=== PATIENT | female | born 1935 | race Asian ===

== ENCOUNTER 2018-11-29 15:45 | Observation (INO) | payer MEDICARE, OTHER ==
[~2018-11-29] VITALS: Ht 152.4 cm; Wt 67.2 kg
[2018-11-29 15:48] VITALS: Ht 152.4 cm; Wt 67.2 kg
[2018-11-29] MEDS ORDERED: ALTEPLASE (CATHFLO) 2 MG INJ CATHETER PRN (19:00)
[2018-11-29] MEDS ORDERED: ALTEPLASE (CATHFLO) 2 MG INJ CATHETER ONE (19:00)
[2018-11-29] MEDS ORDERED: ACETAMINOPHEN 325 MG TAB PO PRN (21:00)
[2018-11-29] MEDS ORDERED: ONDANSETRON 4 MG INJ IV PRN (21:00)
--- NOTE | 2018-11-29 21:00 | ERD ---
ER Documentation Chief Complaint Chief Complaint pt is bib daughter with c/o AV fistula to right arm not working HD MWF HPI This is an 83-year-old female with a past medical history of hypertension, hyperlipidemia, diabetes, heart failure, end-stage renal disease status post right upper extremity graft on dialysis Sunday/Sunday/Sunday, last completed dialysis [facility] on Sunday who is presenting with concerns of an occlusion to the right upper extremity graft. The patient was not able to complete dialysis today. She otherwise feels well. She was assessed by her bereavement coordinator, Dr. Mesa, who referred her to the emergency department for admission for declotting of her graft. The patient denies feeling sick recently. The patient denies fever or chills. The patient has had no headache or vision changes. The patient does not endorse neck or back pain. The patient denies lightheadedness or dizziness. The patient has had no chest pain or trouble breathing. The patient denies nausea or vomiting. The patient denies abdominal pain. The patient denies changes to bowel movements or urination. The patient has had no focal deficits. The patient has had no weakness or numbness or tingling to the face or extremities. ROS All systems reviewed and are negative except as per history of present illness. Medications Home Meds Reported Medications Furosemide* (Furosemide*) 20 Mg Tablet, 60 MG PO BID for 30 Days, #180 11/29/18 Linagliptin (TRADJENTA) 5 Mg Tablet, 5 MG PO DAILY 11/29/18 Nifedipine (Afeditab CR) 60 Mg Tablet.sa, 60 MG PO DAILY for 90 Days, #90 11/29/18 Carvedilol* (Coreg*) 12.5 Mg Tablet, 12.5 MG PO Q12H 11/29/18 Insulin Degludec (Tresiba Flextouch U-100) 100 Unit/1 Ml Insuln.pen, 26 UNIT SQ QAM 11/29/18 Insulin Aspart* (Novolog Insulin Pen*) 100 Unit/Ml Soln, 8 UNIT SC WITH DINNER, EA 11/29/18 Ferric Citrate (Auryxia) 210 Mg Tablet, 420 MG PO TID TAKE 2TABLETS BY MOUTH THREE TIMES A DAY 11/29/18 Simvastatin (Simvastatin) 20 Mg Tablet, 20 MG PO QAM for 90 Days, #90 11/29/18 Memantine* (Namenda* XR) 14 Mg Cap.spr.24, 14 MG PO DAILY 11/29/18 Lactulose* (Cephulac*) 20 Gm/30 Ml Soln, 30 ML PO DAILY for 30 Days 11/29/18 Rivaroxaban* (Xarelto*) 15 Mg Tablet, 15 MG PO DAILY for 30 Days, #30 11/29/18 Pregabalin* (Lyrica*) 75 Mg Capsule, 75 MG PO BID for 30 Days, #60 11/29/18 Esomeprazole Magnesium (Esomeprazole Magnesium) 40 Mg Capsule.dr, 40 MG PO DAILY for 60 Days, #30 11/29/18 Discontinued Reported Medications Carvedilol* (Carvedilol*) 12.5 Mg Tablet, 12.5 MG PO BID, #60 TAB 11/29/18 Allergies Allergies: Coded Allergies: No Known Allergy (Unverified , 11/29/18) PMhx/Soc History of Surgery: Yes (2007 PACEMAKER) Anesthesia Reaction: No Hx Neurological Disorder: No Hx Respiratory Disorders: No Hx Cardiac Disorders: Yes (HTN) Hx Psychiatric Problems: No Hx Miscellaneous Medical Probl: Yes (CKD) Smoking Status: Never smoker FmHx Family History: diabetes Physical Exam Vitals Vital Signs Date Temp Pulse Resp B/P (MAP) Pulse Ox O2 O2 Flow FiO2 Time Delivery Rate 11/29/18 97.3 63 18 140/66 98 Room Air 19:06 (90) 11/29/18 97.3 74 18 140/66 98 15:48 (90) Physical Exam Const: No apparent distress, well-developed, well-nourished Head: Normocephalic, Atraumatic Eyes: Normal Conjunctiva. Extraocular movements intact. ENT: Normal External Ears, Nose and Mouth. Neck: Full range of motion. No meningismus. Resp: Clear to auscultation bilaterally, No wheezes, rales or rhonchi Cardio: Regular rate and rhythm. No murmurs, rubs or gallops Abd: Soft, non tender, non distended. Normal bowel sounds Skin: No petechiae or rashes Back: No midline tenderness. No CVA tenderness Ext: No cyanosis, or edema. Right upper extremity graft with no palpable pulsatile thrill. Neur: Awake and alert, oriented 4. Cranial nerves intact. No facial droop. Normal strength, sensation and coordination. Psych: Normal Mood and Affect Result Diagram: 11/29/18192211/29/181922 Results 24 hrs Laboratory Tests Test 11/29/18 19:23 White Blood Count 7.3 10^3/ul Red Blood Count 3.95 10^6/ul Hemoglobin 12.5 g/dl Hematocrit 39.3 % Mean Corpuscular Volume 99.5 fl Mean Corpuscular Hemoglobin 31.6 pg Mean Corpuscular Hemoglobin Concent 31.8 g/dl Red Cell Distribution Width 15.8 % Platelet Count 165 10^3/UL Mean Platelet Volume 9.5 fl Immature Granulocytes % 0.800 % Neutrophils % 55.6 % Lymphocytes % 28.2 % Monocytes % 8.4 % Eosinophils % 6.3 % Basophils % 0.7 % Nucleated Red Blood Cells % 0.0 /100WBC Immature Granulocytes # 0.060 10^3/ul Neutrophils # 4.1 10^3/ul Lymphocytes # 2.1 10^3/ul Monocytes # 0.6 10^3/ul Eosinophils # 0.5 10^3/ul Basophils # 0.1 10^3/ul Nucleated Red Blood Cells # 0.0 10^3/ul Prothrombin Time 16.4 Sec Prothrombin Time Ratio 1.3 INR International Normalized Ratio 1.31 Sodium Level 137 mmol/L Potassium Level 5.0 mmol/L Chloride Level 102 mmol/L Carbon Dioxide Level 25 mmol/L Anion Gap 10 Blood Urea Nitrogen 49 mg/dl Creatinine 6.32 mg/dl Est Glomerular Filtrat Rate mL/min mL/min Glucose Level 217 mg/dl Calcium Level 9.2 mg/dl Current Medications Medications Dose Sig/Shine Start Time Status Last (Trade) Ordered Route PRN Stop Time Admin Dose Reason Admin Alteplase, 2 mg MAY REPEAT 11/29/18 DC Recombinant X1 PRN 19:00 (Cathflo CATHETER IF 11/29/18 19:00 (Activase)) CATHETER REMAINS OCCULUDED Alteplase, 2 mg ONCE ONCE 11/29/18 DC Recombinant CATHETER 19:00 (Cathflo 11/29/18 19:00 (Activase)) Ondansetron 4 mg ER BRIDGE 11/29/18 HCl (Zofran PRN IV 21:00 Inj) NAUSEA/VOMITI 11/30/18 20:59 NG 650 mg ER BRIDGE 11/29/18 Acetaminophen PRN PO 21:00 (Tylenol .MILD PAIN 11/30/18 20:59 Tab) 1-3 OR TEMP Procedures/MDM MDM The patient's presentation warrants further investigation. Previous medical records, if available, were reviewed. LABS The patient's laboratory testing was obtained and reviewed. No emergent treatment was required unless described below. CBC: No E/o systemic infection or severe anemia or thrombocytopenia Chemistry: No E/o severe acidosis or alkalosis or diabetic ketoacidosis. Elevated BUN and creatinine in line with her known end-stage renal disease. INR: Unremarkable EKG EKG read by me: Rate/Rhythm: Regular rate and rhythm at a rate of 60 bpm Intervals: Normal [place]: Normal Impression: No evidence of acute ischemia or arrhythmia IMAGING Imaging and Radiology interpretation reviewed. CXR FINDINGS: There is mild right basilar atelectasis. No pulmonary edema or consolidation is identified. The cardiac silhouette is enlarged. There are aortic calcifications. There is a left chest cardiac pacemaker. No pleural effusion is seen. There is no pneumothorax. IMPRESSION: No evidence of acute cardiopulmonary disease. Enlarged cardiac silhouette and aortic atherosclerosis. Cardiac pacemaker. Electronically viewed and signed by Yaniv Mcclain MD, MD on 11/29/2018 20:46 RUE Graft US FINDINGS: There is an occluded right radial-cephalic AVF. An occluded right brachial-axillary graft is also noted. IMPRESSION: Occluded right radial-cephalic AVF. Occluded right brachial-axillary graft. Electronically viewed and signed by Yaniv Mcclain MD, MD on 11/29/2018 20:43 TREATMENT/DISPOSITION The patient presents for an occluded AV fistula and brachial axillary graft. The patient was sent by Dr. Mesa who requested admission for further management of this. The patient did not complete dialysis today. However, the patient's electrolytes are within normal limits. The patient does not require dialysis emergently. ADMISSION At this time, I feel that the patient requires admission for further evaluation and management. The patient will be admitted to [facility] in accordance with the [facility]'s insurance. The patient was accepted by Dr. Sanchez at 8:18PM on 11/29/2018. Disclaimer: Inadvertent spelling and grammatical errors are likely due to EHR/dictation software use and do not reflect on the overall quality of patient care. Note that the electronic time recorded on this note does not necessarily reflect the actual time of the patient encounter. Departure Diagnosis: Primary Impression: Clotted dialysis shunt Encounter type: initial encounter Qualified Codes: T82.868A - Thrombosis due to vascular prosthetic devices, implants and grafts, initial encounter Additional Impression: End-stage renal disease needing dialysis Condition: PARIS Pittman MD Nov 29, 2018 21:00
[2018-11-29] MEDS ORDERED: NIFE60TA18 PO (22:13)
[2018-11-29] MEDS ORDERED: INSU100I31 SQ (22:13)
[2018-11-29] MEDS ORDERED: LINA5TAB PO (22:13)
[2018-11-29] MEDS ORDERED: LACT20SO12 PO (22:13)
[2018-11-29] MEDS ORDERED: SIMV20TA20 PO (22:13)
[2018-11-29] MEDS ORDERED: CARV12.598 PO (22:13)
[2018-11-29] MEDS ORDERED: FERR210T PO (22:13)
[2018-11-29] MEDS ORDERED: RIVA15TA PO (22:13)
[2018-11-29] MEDS ORDERED: NOVO3I SC (22:13)
[2018-11-29] MEDS ORDERED: CARV12.579 PO (22:13)
[2018-11-29] MEDS ORDERED: FURO20TA3 PO (22:13)
[2018-11-29] MEDS ORDERED: MEMA14CA PO (22:13)
[2018-11-29] MEDS ORDERED: LYR75 PO (22:13)
[2018-11-29] MEDS ORDERED: ESOM40CA51 PO (22:13)
[2018-11-29 23:39] VITALS: PULSE 63
[2018-11-29 23:44] VITALS: BP 166/77; PULSE 61; RESP 18
--- NOTE | 2018-11-29 23:48 | HP ---
Date/Time of Note Date/Time of Note DATE: 11/29/18 TIME: 23:47 Assessment/Plan VTE Prophylaxis Pharmacological prophylaxis: heparin Lines/Catheters IV Catheter Type (from Nrsg): Saline Lock Assessment/Plan Assessment/Plan 1. Occluded right upper extremity AVF. -Address issue with radiology or vascular surgeon 2. ESRD on HD: M/W/F -Contact patient's outside sales account manager, Dr. Henley -No need for emergent dialysis 3. Hypertension: BP currently was in acceptable range 4. Dyslipidemia: Continue home med 5. Diabetes: Insulin 6. Pacemaker: No acute issue Result Diagram: 11/29/18192211/29/181922 Results 24hrs Laboratory Tests Test 11/29/18 19:23 White Blood Count 7.3 Red Blood Count 3.95 L Hemoglobin 12.5 Hematocrit 39.3 Mean Corpuscular Volume 99.5 Mean Corpuscular Hemoglobin 31.6 Mean Corpuscular Hemoglobin Concent 31.8 L Red Cell Distribution Width 15.8 H Platelet Count 165 Mean Platelet Volume 9.5 Immature Granulocytes % 0.800 H Neutrophils % 55.6 Lymphocytes % 28.2 Monocytes % 8.4 Eosinophils % 6.3 Basophils % 0.7 Nucleated Red Blood Cells % 0.0 Immature Granulocytes # 0.060 H Neutrophils # 4.1 Lymphocytes # 2.1 Monocytes # 0.6 Eosinophils # 0.5 Basophils # 0.1 Nucleated Red Blood Cells # 0.0 Prothrombin Time 16.4 H Prothrombin Time Ratio 1.3 INR International Normalized Ratio 1.31 Sodium Level 137 Potassium Level 5.0 Chloride Level 102 Carbon Dioxide Level 25 Anion Gap 10 Blood Urea Nitrogen 49 H Creatinine 6.32 H Est Glomerular Filtrat Rate mL/min Glucose Level 217 Calcium Level 9.2 HPI/ROS Admit Date/Time Admit Date/Time Nov 29, 2018 at 20:47 Hx of Present Illness This is an 83-year-old female with a history of hypertension, diabetes, pacemaker, ESRD on HD, dyslipidemia who was sent from dialysis center for right upper extremity graft malfunction. Ultrasound in the ER shows Occluded right radial-cephalic AVF and occluded right brachial-axillary graft. Labs shows a creatinine of 6.32 otherwise basic labs WNL. Chest x-ray without active cardiopulmonary findings. Vitals have been stable. PMH/Family/Social Past Medical History Medical History: other (See HPI) Medications Current Medications Ondansetron HCl (Zofran Inj) 4 mg ER BRIDGE PRN IV NAUSEA/VOMITING; Start 11/29/18 at 21:00; Stop 11/30/18 at 20:59 Acetaminophen (Tylenol Tab) 650 mg ER BRIDGE PRN PO .MILD PAIN 1-3 OR TEMP; Start 11/29/18 at 21:00; Stop 11/30/18 at 20:59 Coded Allergies: No Known Allergy (Unverified , 11/29/18) Past Surgical History Past Surgical Hx: other (Right upper extremity AV fistula) Family History Significant Family History: no pertinent family hx Social History Alcohol Use: none Smoking Status: Never smoker Drug Use: none Exam/Review of Systems Vital Signs Vitals Vital Signs Date Temp Pulse Resp B/P (MAP) Pulse Ox O2 O2 Flow FiO2 Time Delivery Rate 11/29/18 78 14 161/78 98 Room Air 23:01 (105) 11/29/18 97.3 19:06 Exam Constitutional: other (No acute distress) Head: normocephalic, atraumatic Eyes: EOMI, PERRL Respiratory: clear to auscultation, normal air movement Cardiovascular: regular rate and rhythm Gastrointestinal: soft Extremities: normal pulses CATARINO AGUIRRE MD Nov 29, 2018 23:48
[2018-11-30] VITALS (11 sets, daily range): BP systolic 127–160; BP diastolic 57–73; PULSE 60–68; RESP 17–20
[2018-11-30] MEDS ORDERED: NACL 0.9% 3 ML SYG IV SCH
[2018-11-30] MEDS ORDERED: ONDANSETRON 4 MG INJ IV PRN
[2018-11-30] MEDS: FUROSEMIDE 20 MG TAB PO SCH ×3 (00:31→17:47)
[2018-11-30] MEDS: PANTOPRAZOLE (EC) 40 MG TAB PO SCH (05:47)
[2018-11-30] MEDS ORDERED: GLUCOSE GEL 15 GRAM TUBE BUCCAL PRN (07:00)
[2018-11-30] MEDS ORDERED: GLUCAGON 1 MG INJ IM PRN (07:00)
[2018-11-30] MEDS ORDERED: GLUCOSE GEL 15 GRAM TUBE PO PRN ×2 (07:00)
[2018-11-30] MEDS ORDERED: DEXTROSE 50% 50 ML SYRINGE IV PRN ×2 (07:00)
[2018-11-30] MEDS: LINAGLIPTIN 5 MG TABLET PO SCH (08:34)
[2018-11-30] MEDS: MEMANTINE 5 MG TAB PO SCH ×2 (08:34→22:23)
[2018-11-30] MEDS: PREGABALIN 75 MG CAP PO SCH ×2 (08:34→22:22)
[2018-11-30] MEDS: NIFEdipine (XL) 60 MG TAB PO SCH (08:35)
[2018-11-30] MEDS: INSULIN GLARGINE [LANTus] (100 UNITS/ML) SYG SC SCH (08:52)
[2018-11-30] MEDS ORDERED: NON-FORMULARY/PATIENT OWN MED (Simvastatin 20 MG) PO SCH (09:00)
[2018-11-30] MEDS ORDERED: FERRIC CITRATE 420 MG PO SCH (09:00)
[2018-11-30] MEDS ORDERED: NA PHOSPHATE/BIPHOS 133 ML ENEMA PR ONE (09:00)
[2018-11-30] MEDS ORDERED: INSULIN GLARGINE [LANTus] (100 UNITS/ML) SYG SC SCH (09:00)
[2018-11-30] MEDS ORDERED: NON-FORMULARY/PATIENT OWN MED (Esomeprazole Magnesium 40 MG) PO SCH (09:00)
--- NOTE | 2018-11-30 10:17 | CONS ---
Assessment/Plan Assessment/Plan Assessment/Plan (Daily) Multiple chronic medical conditions now admitted for thrombosed RUE AVG Plan: -Will plan for RUE fistulogram w/ possible intervention and possible permacath if unable to restore patency - indications, risks and benefits of the procedure were d/w pt and family, who agreed to proceed -Per RN, pt is to have HD after procedure and then plan is to discharge if no further issues -D/w RN Consultation Date/Type/Reason Admit Date/Time Nov 29, 2018 at 20:47 Date of Consultation: Nov 30, 2018 Reason for Consultation Thrombosed RUE AVG Requesting Provider: DEEJAY MCGREGOR Date/Time of Note DATE: 11/30/18 TIME: 10:17 Hx of Present Illness 83F with HTN, hyperlipidemia, DM, heart failure, ESRD on HD via RUE AVG created 03/2018 at outside facility, presents for occlusion to right upper extremity AV graft. Pt's family says last completed dialysis was on Sunday and she was not able to have dialysis yesterday and was sent to ER last night by nurse practitioner physicians assistant for AVG declotting. She otherwise has no other complaints. She denies fever or chills, headache or vision changes, chest pain or SOB, nausea or vomiting. She is on Xarelto but family does not know why. 12-point ROS done, negative except for HPI Past Medical History As per HPI Medical History: other (See HPI) Home Meds Active Scripts Sevelamer Carbonate* (Renvela*) 800 Mg Tablet, 0.8 GM PO WITH MEALS, #90 TAB 1 Refill Prov:JOSE DAVID BONILLA. 12/02/18 Polyethylene Glycol* (Miralax*) 17 Gm Powd.pack, 17 GM PO DAILY, #30 PACKET 2 Refills Prov:JOSE DAVID BONILLA. 12/02/18 Hydrocodone/Acetaminophen ([place] 5-325 Tablet) 1 Each Tablet, 1 EACH PO Q6H PRN for pain not relieved by tylenol, #10 TAB Prov:JOSE DAVID BONILLA. 12/02/18 Reported Medications Furosemide* (Furosemide*) 20 Mg Tablet, 60 MG PO BID for 30 Days, #180 11/29/18 Linagliptin (TRADJENTA) 5 Mg Tablet, 5 MG PO DAILY 11/29/18 Nifedipine (Afeditab CR) 60 Mg Tablet.sa, 60 MG PO DAILY for 90 Days, #90 11/29/18 Carvedilol* (Coreg*) 12.5 Mg Tablet, 12.5 MG PO Q12H 11/29/18 Insulin Degludec (Tresiba Flextouch U-100) 100 Unit/1 Ml Insuln.pen, 26 UNIT SQ QAM 11/29/18 Insulin Aspart* (Novolog Insulin Pen*) 100 Unit/Ml Soln, 8 UNIT SC WITH DINNER, EA 11/29/18 Ferric Citrate (Auryxia) 210 Mg Tablet, 420 MG PO TID TAKE 2TABLETS BY MOUTH THREE TIMES A DAY 11/29/18 Simvastatin (Simvastatin) 20 Mg Tablet, 20 MG PO QAM for 90 Days, #90 11/29/18 Memantine* (Namenda* XR) 14 Mg Cap.spr.24, 14 MG PO DAILY 11/29/18 Rivaroxaban* (Xarelto*) 15 Mg Tablet, 15 MG PO DAILY for 30 Days, #30 11/29/18 Pregabalin* (Lyrica*) 75 Mg Capsule, 75 MG PO BID for 30 Days, #60 11/29/18 Esomeprazole Magnesium (Esomeprazole Magnesium) 40 Mg Capsule.dr, 40 MG PO DAILY for 60 Days, #30 11/29/18 Discontinued Reported Medications Lactulose* (Cephulac*) 20 Gm/30 Ml Soln, 30 ML PO DAILY for 30 Days 11/29/18 Carvedilol* (Carvedilol*) 12.5 Mg Tablet, 12.5 MG PO BID, #60 TAB 11/29/18 Medications Current Medications IV Flush (NS 3 ml) 3 ml PER PROTOCOL IV ; Start 11/30/18 at 00:00 Ondansetron HCl (Zofran Inj) 4 mg Q6H PRN IV NAUSEA/VOMITING; Start 11/30/18 at 00:00 Acetaminophen (Tylenol Tab) 650 mg Q6H PRN PO .PAIN 1-3 OR TEMP; Start 11/30/18 at 00:00 Carvedilol (Coreg) 12.5 mg Q12H PO Last administered on 11/30/18at 00:31; Start 11/30/18 at 00:00 Furosemide (Lasix) 60 mg BID DIURETICS PO Last administered on 11/30/18at 05:48; Start 11/30/18 at 00:00 Linagliptin (Tradjenta) 5 mg DAILY PO Last administered on 11/30/18at 08:34; Start 11/30/18 at 09:00 Nifedipine (Procardia Xl) 60 mg DAILY PO Last administered on 11/30/18at 08:35; Start 11/30/18 at 09:00 Pregabalin (Lyrica) 75 mg BID PO Last administered on 11/30/18at 08:34; Start 11/30/18 at 09:00 Rivaroxaban (Xarelto) 15 mg WITH DINNER PO ; Start 11/30/18 at 18:00 Memantine (Namenda) 5 mg BID PO Last administered on 11/30/18at 08:34; Start 11/30/18 at 09:00 Atorvastatin Calcium (Lipitor) 10 mg DAILY@21 PO ; Start 11/30/18 at 21:00 Pantoprazole (Protonix Tab) 40 mg DAILY@06 PO Last administered on 11/30/18at 05:47; Start 11/30/18 at 06:00 Miscellaneous Information 1 ea NOTE XX ; Start 11/30/18 at 07:00 Glucose (Glutose) 15 gm Q15M PRN PO DECREASED GLUCOSE; Start 11/30/18 at 07:00 Glucose (Glutose) 22.5 gm Q15M PRN PO DECREASED GLUCOSE; Start 11/30/18 at 07:00 Dextrose (D50w Syringe) 25 ml Q15M PRN IV DECREASED GLUCOSE; Start 11/30/18 at 07:00 Dextrose (D50w Syringe) 50 ml Q15M PRN IV DECREASED GLUCOSE; Start 11/30/18 at 07:00 Glucagon (Glucagen) 1 mg Q15M PRN IM DECREASED GLUCOSE; Start 11/30/18 at 07:00 Glucose (Glutose) 15 gm Q15M PRN BUCCAL DECREASED GLUCOSE; Start 11/30/18 at 07:00 Insulin Glargine (Lantus) 26 units QAM SC Last administered on 11/30/18at 08:52; Start 11/30/18 at 09:00 Sodium Biphosphate/ Sodium Phosphate (Fleet Enema) 133 ml ONCE ONCE TX ; Start 11/30/18 at 09:00; Stop 11/30/18 at 09:01 Allergies: Coded Allergies: No Known Allergy (Unverified , 11/29/18) Past Surgical History RUE AVG 03/2018 Previous RUE BC AVF that appears chronically thrombosed Left chest pacemaker Past Surgical Hx: other (Right upper extremity AV fistula) Social History Alcohol Use: none Smoking Status: Never smoker Drug Use: none Exam/Review of Systems Exam Vitals Vital Signs Date Temp Pulse Resp B/P (MAP) Pulse Ox O2 O2 Flow FiO2 Time Delivery Rate 11/30/18 98.6 68 20 151/70 97 Room Air 07:15 (97) Intake and Output 11/29/18 11/29/18 11/30/18 1515:00 23:00 07:00 IntakeIntake Total 300 ml BalanceBalance 300 ml Exam Gen: Awake, alert, NAD - non-Malaysian speaking - family at bedside translating Neck: supple Heart: Reg; L chest pacer Lungs: Clear ant Abd: obese, soft, NT Extr: BUE warm, no cyanosis, no edema; RUE thrombosed BC AVF - old; thrombosed RUE AVG w/ recent cannulation sites noted Pulses: 2+ brachial pulses bilaterally, 1+ radial bilaterally Results Result Diagram: 11/30/18 0523 11/30/18522 Results 24hrs Laboratory Tests Test 11/29/18 19:23 11/30/18 00:36 11/30/18 05:23 11/30/18 08:32 White Blood Count 7.3 6.6 Red Blood Count 3.95 L 3.93 L Hemoglobin 12.5 12.4 Hematocrit 39.3 38.6 Mean Corpuscular 99.5 98.2 Volume Mean Corpuscular 31.6 31.6 Hemoglobin Mean Corpuscular 31.8 L 32.1 Hemoglobin Concent Red Cell 15.8 H 15.7 H Distribution Width Platelet Count 165 163 Mean Platelet Volume 9.5 10.0 Immature 0.800 H 0.600 H Granulocytes % Neutrophils % 55.6 53.9 Lymphocytes % 28.2 25.3 Monocytes % 8.4 9.0 Eosinophils % 6.3 10.1 H Basophils % 0.7 1.1 Nucleated Red Blood 0.0 0.0 Cells % Immature 0.060 H 0.040 H Granulocytes # Neutrophils # 4.1 3.5 Lymphocytes # 2.1 1.7 Monocytes # 0.6 0.6 Eosinophils # 0.5 0.7 H Basophils # 0.1 0.1 Nucleated Red Blood 0.0 0.0 Cells # Prothrombin Time 16.4 H Prothrombin Time 1.3 Ratio INR International 1.31 Normalized Ratio Sodium Level 137 140 Potassium Level 5.0 4.6 Chloride Level 102 105 Carbon Dioxide Level 25 26 Anion Gap 10 9 Blood Urea Nitrogen 49 H 54 H Creatinine 6.32 H 6.90 H Est Glomerular Filtrat Rate mL/min Glucose Level 217 118 # Calcium Level 9.2 9.0 Bedside Glucose 114 144 Hemoglobin A1c 7.6 H Magnesium Level 3.0 H Total Bilirubin 0.2 Direct Bilirubin 0.00 Indirect Bilirubin 0.2 Aspartate Amino 18 Transf (AST/SGOT) Alanine 16 Aminotransferase (AL T/SGPT) Alkaline Phosphatase 195 H Total Protein 6.7 Albumin 3.4 Globulin 3.30 H Albumin/Globulin 1.03 Ratio Triglycerides Level 229 H Cholesterol Level 132 LDL Cholesterol, 60 Calculated HDL Cholesterol 26 L Cholesterol/HDL 5.0 Ratio Medications Medication Current Medications IV Flush (NS 3 ml) 3 ml PER PROTOCOL IV ; Start 11/30/18 at 00:00 Ondansetron HCl (Zofran Inj) 4 mg Q6H PRN IV NAUSEA/VOMITING; Start 11/30/18 at 00:00 Acetaminophen (Tylenol Tab) 650 mg Q6H PRN PO .PAIN 1-3 OR TEMP; Start 11/30/18 at 00:00 Carvedilol (Coreg) 12.5 mg Q12H PO Last administered on 11/30/18at 00:31; Start 11/30/18 at 00:00 Furosemide (Lasix) 60 mg BID DIURETICS PO Last administered on 11/30/18at 05:48; Start 11/30/18 at 00:00 Linagliptin (Tradjenta) 5 mg DAILY PO Last administered on 11/30/18at 08:34; Start 11/30/18 at 09:00 Nifedipine (Procardia Xl) 60 mg DAILY PO Last administered on 11/30/18at 08:35; Start 11/30/18 at 09:00 Pregabalin (Lyrica) 75 mg BID PO Last administered on 11/30/18at 08:34; Start 11/30/18 at 09:00 Rivaroxaban (Xarelto) 15 mg WITH DINNER PO ; Start 11/30/18 at 18:00 Memantine (Namenda) 5 mg BID PO Last administered on 11/30/18at 08:34; Start 11/30/18 at 09:00 Atorvastatin Calcium (Lipitor) 10 mg DAILY@21 PO ; Start 11/30/18 at 21:00 Pantoprazole (Protonix Tab) 40 mg DAILY@06 PO Last administered on 11/30/18at 05:47; Start 11/30/18 at 06:00 Miscellaneous Information 1 ea NOTE XX ; Start 11/30/18 at 07:00 Glucose (Glutose) 15 gm Q15M PRN PO DECREASED GLUCOSE; Start 11/30/18 at 07:00 Glucose (Glutose) 22.5 gm Q15M PRN PO DECREASED GLUCOSE; Start 11/30/18 at 07:00 Dextrose (D50w Syringe) 25 ml Q15M PRN IV DECREASED GLUCOSE; Start 11/30/18 at 07:00 Dextrose (D50w Syringe) 50 ml Q15M PRN IV DECREASED GLUCOSE; Start 11/30/18 at 07:00 Glucagon (Glucagen) 1 mg Q15M PRN IM DECREASED GLUCOSE; Start 11/30/18 at 07:00 Glucose (Glutose) 15 gm Q15M PRN BUCCAL DECREASED GLUCOSE; Start 11/30/18 at 07:00 Insulin Glargine (Lantus) 26 units QAM SC Last administered on 11/30/18at 08:52; Start 11/30/18 at 09:00 Sodium Biphosphate/ Sodium Phosphate (Fleet Enema) 133 ml ONCE ONCE TX ; Start 11/30/18 at 09:00; Stop 11/30/18 at 09:01 RUPALI BRADSHAW MD Nov 30, 2018 10:17
--- NOTE | 2018-11-30 10:31 | PN ---
Date/Time of Note Date/Time of Note DATE: 11/30/18 TIME: 10: Assessment/Plan VTE Prophylaxis SCD applied (from Nsg): No SCD contraindicated: other Pharmacological prophylaxis: rivaroxaban Lines/Catheters IV Catheter Type (from Nrsg): Saline Lock Urinary Cath still in place: No Assessment/Plan Hospital Course S: Patient had no acute events overnight. Waiting to be seen by vascular surgery and renal teams. O: VS - see below PE: GEN: No apparent distress, well-developed, lying in bed Head: Normocephalic, Atraumatic Eyes: Normal Conjunctiva. Extraocular movements intact. ENT: Normal External Ears, Nose and Mouth. Neck: Full range of motion. No meningismus. Resp: Clear to auscultation bilaterally, No wheezes, rales or rhonchi Cardio: Regular rate and rhythm. No murmurs, rubs or gallops Abd: Soft, non tender, non distended. Normal bowel sounds Ext: No lower extremity edema bilaterally. Right upper extremity graft with no palpable pulsatile thrill. Neur: No focal deficits Assessment/Plan: 83-year-old female who presents with: 1. Occluded right upper extremity AVF-again, Ultrasound in the ER shows Occluded right radial-cephalic AVF and occluded right brachial-axillary graft. -Address issue with vascular surgeon -they have been consulted - We will also get PT and OT consults 2. ESRD on HD: M/W/ schedule patient is on as an outpatient -Again, will contact patient's leather splitter for official consult -No need for emergent dialysis, continue monitor for now unless otherwise specified by renal team 3. Hypertension: BP currently in acceptable range -Monitor, continue current antihypertensive medications 4. Dyslipidemia: Continue home med 5. Diabetes: Sugar stable -Follow-up A1c, continue insulin 6. Pacemaker: No acute issue Result Diagram: 11/30/1852211/30/18522 Results 24hrs Laboratory Tests Test 11/29/18 19:23 11/30/18 00:36 11/30/18 05:23 11/30/18 08:32 White Blood Count 7.3 6.6 Red Blood Count 3.95 L 3.93 L Hemoglobin 12.5 12.4 Hematocrit 39.3 38.6 Mean Corpuscular 99.5 98.2 Volume Mean Corpuscular 31.6 31.6 Hemoglobin Mean Corpuscular 31.8 L 32.1 Hemoglobin Concent Red Cell 15.8 H 15.7 H Distribution Width Platelet Count 165 163 Mean Platelet Volume 9.5 10.0 Immature 0.800 H 0.600 H Granulocytes % Neutrophils % 55.6 53.9 Lymphocytes % 28.2 25.3 Monocytes % 8.4 9.0 Eosinophils % 6.3 10.1 H Basophils % 0.7 1.1 Nucleated Red Blood 0.0 0.0 Cells % Immature 0.060 H 0.040 H Granulocytes # Neutrophils # 4.1 3.5 Lymphocytes # 2.1 1.7 Monocytes # 0.6 0.6 Eosinophils # 0.5 0.7 H Basophils # 0.1 0.1 Nucleated Red Blood 0.0 0.0 Cells # Prothrombin Time 16.4 H Prothrombin Time 1.3 Ratio INR International 1.31 Normalized Ratio Sodium Level 137 140 Potassium Level 5.0 4.6 Chloride Level 102 105 Carbon Dioxide Level 25 26 Anion Gap 10 9 Blood Urea Nitrogen 49 H 54 H Creatinine 6.32 H 6.90 H Est Glomerular Filtrat Rate mL/min Glucose Level 217 118 # Calcium Level 9.2 9.0 Bedside Glucose 114 144 Hemoglobin A1c 7.6 H Magnesium Level 3.0 H Total Bilirubin 0.2 Direct Bilirubin 0.00 Indirect Bilirubin 0.2 Aspartate Amino 18 Transf (AST/SGOT) Alanine 16 Aminotransferase (AL T/SGPT) Alkaline Phosphatase 195 H Total Protein 6.7 Albumin 3.4 Globulin 3.30 H Albumin/Globulin 1.03 Ratio Triglycerides Level 229 H Cholesterol Level 132 LDL Cholesterol, 60 Calculated HDL Cholesterol 26 L Cholesterol/HDL 5.0 Ratio Exam/Review of Systems Exam Vitals Vital Signs Date Temp Pulse Resp B/P (MAP) Pulse Ox O2 O2 Flow FiO2 Time Delivery Rate 11/30/18 98.6 68 20 151/70 97 Room Air 07:15 (97) Intake and Output 11/29/18 11/29/18 11/30/18 1515:00 23:00 07:00 IntakeIntake Total 300 ml BalanceBalance 300 ml Results Results 24hrs Laboratory Tests Test 11/29/18 19:23 11/30/18 00:36 11/30/18 05:23 11/30/18 08:32 White Blood Count 7.3 6.6 Red Blood Count 3.95 L 3.93 L Hemoglobin 12.5 12.4 Hematocrit 39.3 38.6 Mean Corpuscular 99.5 98.2 Volume Mean Corpuscular 31.6 31.6 Hemoglobin Mean Corpuscular 31.8 L 32.1 Hemoglobin Concent Red Cell 15.8 H 15.7 H Distribution Width Platelet Count 165 163 Mean Platelet Volume 9.5 10.0 Immature 0.800 H 0.600 H Granulocytes % Neutrophils % 55.6 53.9 Lymphocytes % 28.2 25.3 Monocytes % 8.4 9.0 Eosinophils % 6.3 10.1 H Basophils % 0.7 1.1 Nucleated Red Blood 0.0 0.0 Cells % Immature 0.060 H 0.040 H Granulocytes # Neutrophils # 4.1 3.5 Lymphocytes # 2.1 1.7 Monocytes # 0.6 0.6 Eosinophils # 0.5 0.7 H Basophils # 0.1 0.1 Nucleated Red Blood 0.0 0.0 Cells # Prothrombin Time 16.4 H Prothrombin Time 1.3 Ratio INR International 1.31 Normalized Ratio Sodium Level 137 140 Potassium Level 5.0 4.6 Chloride Level 102 105 Carbon Dioxide Level 25 26 Anion Gap 10 9 Blood Urea Nitrogen 49 H 54 H Creatinine 6.32 H 6.90 H Est Glomerular Filtrat Rate mL/min Glucose Level 217 118 # Calcium Level 9.2 9.0 Bedside Glucose 114 144 Hemoglobin A1c 7.6 H Magnesium Level 3.0 H Total Bilirubin 0.2 Direct Bilirubin 0.00 Indirect Bilirubin 0.2 Aspartate Amino 18 Transf (AST/SGOT) Alanine 16 Aminotransferase (AL T/SGPT) Alkaline Phosphatase 195 H Total Protein 6.7 Albumin 3.4 Globulin 3.30 H Albumin/Globulin 1.03 Ratio Triglycerides Level 229 H Cholesterol Level 132 LDL Cholesterol, 60 Calculated HDL Cholesterol 26 L Cholesterol/HDL 5.0 Ratio Medications Medication Current Medications IV Flush (NS 3 ml) 3 ml PER PROTOCOL IV ; Start 11/30/18 at 00:00 Ondansetron HCl (Zofran Inj) 4 mg Q6H PRN IV NAUSEA/VOMITING; Start 11/30/18 at 00:00 Acetaminophen (Tylenol Tab) 650 mg Q6H PRN PO .PAIN 1-3 OR TEMP; Start 11/30/18 at 00:00 Carvedilol (Coreg) 12.5 mg Q12H PO Last administered on 11/30/18at 00:31; Admin Dose 12.5 MG; Start 11/30/18 at 00:00 Furosemide (Lasix) 60 mg BID DIURETICS PO Last administered on 11/30/18at 05:48; Admin Dose 60 MG; Start 11/30/18 at 00:00 Linagliptin (Tradjenta) 5 mg DAILY PO Last administered on 11/30/18at 08:34; Admin Dose 5 MG; Start 11/30/18 at 09:00 Nifedipine (Procardia Xl) 60 mg DAILY PO Last administered on 11/30/18at 08:35; Admin Dose 60 MG; Start 11/30/18 at 09:00 Pregabalin (Lyrica) 75 mg BID PO Last administered on 11/30/18at 08:34; Admin Dose 75 MG; Start 11/30/18 at 09:00 Rivaroxaban (Xarelto) 15 mg WITH DINNER PO ; Start 11/30/18 at 18:00 Memantine (Namenda) 5 mg BID PO Last administered on 11/30/18at 08:34; Admin Dose 5 MG; Start 11/30/18 at 09:00 Atorvastatin Calcium (Lipitor) 10 mg DAILY@21 PO ; Start 11/30/18 at 21:00 Pantoprazole (Protonix Tab) 40 mg DAILY@06 PO Last administered on 11/30/18at 05:47; Admin Dose 40 MG; Start 11/30/18 at 06:00 Miscellaneous Information 1 ea NOTE XX ; Start 11/30/18 at 07:00 Glucose (Glutose) 15 gm Q15M PRN PO DECREASED GLUCOSE; Start 11/30/18 at 07:00 Glucose (Glutose) 22.5 gm Q15M PRN PO DECREASED GLUCOSE; Start 11/30/18 at 07:00 Dextrose (D50w Syringe) 25 ml Q15M PRN IV DECREASED GLUCOSE; Start 11/30/18 at 07:00 Dextrose (D50w Syringe) 50 ml Q15M PRN IV DECREASED GLUCOSE; Start 11/30/18 at 07:00 Glucagon (Glucagen) 1 mg Q15M PRN IM DECREASED GLUCOSE; Start 11/30/18 at 07:00 Glucose (Glutose) 15 gm Q15M PRN BUCCAL DECREASED GLUCOSE; Start 11/30/18 at 07:00 Insulin Glargine (Lantus) 26 units QAM SC Last administered on 11/30/18at 08:52; Admin Dose 26 UNITS; Start 11/30/18 at 09:00 DEEJAY MCRGEGOR Nov 30, 2018 10:30
[2018-11-30] MEDS ORDERED: FENTAnyl 50 MCG/ML VIAL ONE (11:42)
--- NOTE | 2018-11-30 12:25 | SIPON ---
Date/Time of Note Date/Time of Note DATE: 11/30/18 TIME: 12:23 Operative Report Preoperative Diagnosis ESRD, thrombosed RUE AVG Postoperative Diagnosis same Operation/Procedure Performed RUE fistulogram, percutaneous thrombectomy and venoplasty Surgeon see signature line research study assistant n/a Anesthesia: moderate sedation, other (local) Estimated blood loss: minimal Transfusion Required none Specimen n/a Grafts/Implants none Complications none RUPALI BRADSHAW MD Nov 30, 2018 12:25
--- NOTE | 2018-11-30 12:27 | CONS ---
Assessment/Plan Assessment/Plan Problems: (1) IDDM (insulin dependent diabetes mellitus) Comment: on insulin..ordered (2) HTN (hypertension) Comment: controlled (3) End-stage renal disease needing dialysis Status: Acute Comment: q MWF at [facility].. due to HTN/DM (4) Clotted dialysis shunt Status: Acute Comment: for hopeful declot today, with dialysis to follow... then, is OK to d/c from renal perspective Qualifiers: Qualified Codes: T82.868A - Thrombosis due to vascular prosthetic devices, implants and grafts, initial encounter (5) Hyperlipidemia Comment: on meds/statins Consultation Date/Type/Reason Admit Date/Time Nov 29, 2018 at 20:47 Type of Consult Nephrology Date/Time of Note DATE: 11/30/18 TIME: 12:16 Hx of Present Illness This lady has ESRD due to DM/Htn, and dialyzes at [facility] q MWF. She presented for her routine HD yesterday, was noted w thrombosis RUE AVG, and came to [facility] for further eval. She has had recurrent AVG thromboses, and has always been taken care of downtown at [facility]. This time the daughter wanted to stay in the [place] for definitive Rx. No recent fevers chills or sweats. She is very stable on dialysis, aside from her access woes. Her CXR is clear, and VSS. Past Medical History Home Meds Reported Medications Furosemide* (Furosemide*) 20 Mg Tablet, 60 MG PO BID for 30 Days, #180 11/29/18 Linagliptin (TRADJENTA) 5 Mg Tablet, 5 MG PO DAILY 11/29/18 Nifedipine (Afeditab CR) 60 Mg Tablet.sa, 60 MG PO DAILY for 90 Days, #90 11/29/18 Carvedilol* (Coreg*) 12.5 Mg Tablet, 12.5 MG PO Q12H 11/29/18 Insulin Degludec (Tresiba Flextouch U-100) 100 Unit/1 Ml Insuln.pen, 26 UNIT SQ QAM 11/29/18 Insulin Aspart* (Novolog Insulin Pen*) 100 Unit/Ml Soln, 8 UNIT SC WITH DINNER, EA 11/29/18 Ferric Citrate (Auryxia) 210 Mg Tablet, 420 MG PO TID TAKE 2TABLETS BY MOUTH THREE TIMES A DAY 11/29/18 Simvastatin (Simvastatin) 20 Mg Tablet, 20 MG PO QAM for 90 Days, #90 11/29/18 Memantine* (Namenda* XR) 14 Mg Cap.spr.24, 14 MG PO DAILY 11/29/18 Lactulose* (Cephulac*) 20 Gm/30 Ml Soln, 30 ML PO DAILY for 30 Days 11/29/18 Rivaroxaban* (Xarelto*) 15 Mg Tablet, 15 MG PO DAILY for 30 Days, #30 11/29/18 Pregabalin* (Lyrica*) 75 Mg Capsule, 75 MG PO BID for 30 Days, #60 11/29/18 Esomeprazole Magnesium (Esomeprazole Magnesium) 40 Mg Capsule.dr, 40 MG PO DAILY for 60 Days, #30 11/29/18 Discontinued Reported Medications Carvedilol* (Carvedilol*) 12.5 Mg Tablet, 12.5 MG PO BID, #60 TAB 11/29/18 Medications Current Medications IV Flush (NS 3 ml) 3 ml PER PROTOCOL IV ; Start 11/30/18 at 00:00 Ondansetron HCl (Zofran Inj) 4 mg Q6H PRN IV NAUSEA/VOMITING; Start 11/30/18 at 00:00 Acetaminophen (Tylenol Tab) 650 mg Q6H PRN PO .PAIN 1-3 OR TEMP; Start 11/30/18 at 00:00 Carvedilol (Coreg) 12.5 mg Q12H PO Last administered on 11/30/18at 00:31; Admin Dose 12.5 MG; Start 11/30/18 at 00:00 Furosemide (Lasix) 60 mg BID DIURETICS PO Last administered on 11/30/18at 05:48; Admin Dose 60 MG; Start 11/30/18 at 00:00 Linagliptin (Tradjenta) 5 mg DAILY PO Last administered on 11/30/18at 08:34; Admin Dose 5 MG; Start 11/30/18 at 09:00 Nifedipine (Procardia Xl) 60 mg DAILY PO Last administered on 11/30/18at 08:35; Admin Dose 60 MG; Start 11/30/18 at 09:00 Pregabalin (Lyrica) 75 mg BID PO Last administered on 11/30/18at 08:34; Admin Dose 75 MG; Start 11/30/18 at 09:00 Rivaroxaban (Xarelto) 15 mg WITH DINNER PO ; Start 11/30/18 at 18:00 Memantine (Namenda) 5 mg BID PO Last administered on 11/30/18at 08:34; Admin Dose 5 MG; Start 11/30/18 at 09:00 Atorvastatin Calcium (Lipitor) 10 mg DAILY@21 PO ; Start 11/30/18 at 21:00 Pantoprazole (Protonix Tab) 40 mg DAILY@06 PO Last administered on 11/30/18at 05:47; Admin Dose 40 MG; Start 11/30/18 at 06:00 Miscellaneous Information 1 ea NOTE XX ; Start 11/30/18 at 07:00 Glucose (Glutose) 15 gm Q15M PRN PO DECREASED GLUCOSE; Start 11/30/18 at 07:00 Glucose (Glutose) 22.5 gm Q15M PRN PO DECREASED GLUCOSE; Start 11/30/18 at 07:00 Dextrose (D50w Syringe) 25 ml Q15M PRN IV DECREASED GLUCOSE; Start 11/30/18 at 07:00 Dextrose (D50w Syringe) 50 ml Q15M PRN IV DECREASED GLUCOSE; Start 11/30/18 at 07:00 Glucagon (Glucagen) 1 mg Q15M PRN IM DECREASED GLUCOSE; Start 11/30/18 at 07:00 Glucose (Glutose) 15 gm Q15M PRN BUCCAL DECREASED GLUCOSE; Start 11/30/18 at 07:00 Insulin Glargine (Lantus) 26 units QAM SC Last administered on 11/30/18at 08:52; Admin Dose 26 UNITS; Start 11/30/18 at 09:00 Allergies: Coded Allergies: No Known Allergy (Unverified , 11/29/18) Past Surgical History Past Surgical Hx: other (Right upper extremity AV fistula) Social History Alcohol Use: none Smoking Status: Never smoker Drug Use: none Exam/Review of Systems Vital Signs Vitals Vital Signs Date Temp Pulse Resp B/P (MAP) Pulse Ox O2 O2 Flow FiO2 Time Delivery Rate 11/30/18 60 08:00 11/30/18 98.6 20 151/70 97 Room Air 07:15 (97) Intake and Output 11/29/18 11/29/18 11/30/18 1515:00 23:00 07:00 IntakeIntake Total 300 ml BalanceBalance 300 ml Exam Constitutional: alert, oriented, well developed Psych: no complaints Head: normocephalic, atraumatic Eyes: nl conjunctiva, EOMI Neck: supple, non-tender Respiratory: clear to auscultation, normal air movement, other (PPM in Lt upper chest) Cardiovascular: regular rate and rhythm Gastrointestinal: soft, nl liver, spleen Extremities: edema (1+ edema.. thrombosed RUE AVG.) Labs Result Diagram: 11/30/1823 11/30/18522 Results 24hrs Laboratory Tests Test 11/29/18 19:23 11/30/18 00:36 11/30/18 05:23 11/30/18 08:32 White Blood Count 7.3 6.6 Red Blood Count 3.95 L 3.93 L Hemoglobin 12.5 12.4 Hematocrit 39.3 38.6 Mean Corpuscular 99.5 98.2 Volume Mean Corpuscular 31.6 31.6 Hemoglobin Mean Corpuscular 31.8 L 32.1 Hemoglobin Concent Red Cell 15.8 H 15.7 H Distribution Width Platelet Count 165 163 Mean Platelet Volume 9.5 10.0 Immature 0.800 H 0.600 H Granulocytes % Neutrophils % 55.6 53.9 Lymphocytes % 28.2 25.3 Monocytes % 8.4 9.0 Eosinophils % 6.3 10.1 H Basophils % 0.7 1.1 Nucleated Red Blood 0.0 0.0 Cells % Immature 0.060 H 0.040 H Granulocytes # Neutrophils # 4.1 3.5 Lymphocytes # 2.1 1.7 Monocytes # 0.6 0.6 Eosinophils # 0.5 0.7 H Basophils # 0.1 0.1 Nucleated Red Blood 0.0 0.0 Cells # Prothrombin Time 16.4 H Prothrombin Time 1.3 Ratio INR International 1.31 Normalized Ratio Sodium Level 137 140 Potassium Level 5.0 4.6 Chloride Level 102 105 Carbon Dioxide Level 25 26 Anion Gap 10 9 Blood Urea Nitrogen 49 H 54 H Creatinine 6.32 H 6.90 H Est Glomerular Filtrat Rate mL/min Glucose Level 217 118 # Calcium Level 9.2 9.0 Bedside Glucose 114 144 Hemoglobin A1c 7.6 H Magnesium Level 3.0 H Total Bilirubin 0.2 Direct Bilirubin 0.00 Indirect Bilirubin 0.2 Aspartate Amino 18 Transf (AST/SGOT) Alanine 16 Aminotransferase (AL T/SGPT) Alkaline Phosphatase 195 H Total Protein 6.7 Albumin 3.4 Globulin 3.30 H Albumin/Globulin 1.03 Ratio Triglycerides Level 229 H Cholesterol Level 132 LDL Cholesterol, 60 Calculated HDL Cholesterol 26 L Cholesterol/HDL 5.0 Ratio Medications Medications Current Medications IV Flush (NS 3 ml) 3 ml PER PROTOCOL IV ; Start 11/30/18 at 00:00 Ondansetron HCl (Zofran Inj) 4 mg Q6H PRN IV NAUSEA/VOMITING; Start 11/30/18 at 00:00 Acetaminophen (Tylenol Tab) 650 mg Q6H PRN PO .PAIN 1-3 OR TEMP; Start 11/30/18 at 00:00 Carvedilol (Coreg) 12.5 mg Q12H PO Last administered on 11/30/18at 00:31; Admin Dose 12.5 MG; Start 11/30/18 at 00:00 Furosemide (Lasix) 60 mg BID DIURETICS PO Last administered on 11/30/18at 05:48; Admin Dose 60 MG; Start 11/30/18 at 00:00 Linagliptin (Tradjenta) 5 mg DAILY PO Last administered on 11/30/18at 08:34; Admin Dose 5 MG; Start 11/30/18 at 09:00 Nifedipine (Procardia Xl) 60 mg DAILY PO Last administered on 11/30/18at 08:35; Admin Dose 60 MG; Start 11/30/18 at 09:00 Pregabalin (Lyrica) 75 mg BID PO Last administered on 11/30/18at 08:34; Admin Dose 75 MG; Start 11/30/18 at 09:00 Rivaroxaban (Xarelto) 15 mg WITH DINNER PO ; Start 11/30/18 at 18:00 Memantine (Namenda) 5 mg BID PO Last administered on 11/30/18at 08:34; Admin Dose 5 MG; Start 11/30/18 at 09:00 Atorvastatin Calcium (Lipitor) 10 mg DAILY@21 PO ; Start 11/30/18 at 21:00 Pantoprazole (Protonix Tab) 40 mg DAILY@06 PO Last administered on 11/30/18at 05:47; Admin Dose 40 MG; Start 11/30/18 at 06:00 Miscellaneous Information 1 ea NOTE XX ; Start 11/30/18 at 07:00 Glucose (Glutose) 15 gm Q15M PRN PO DECREASED GLUCOSE; Start 11/30/18 at 07:00 Glucose (Glutose) 22.5 gm Q15M PRN PO DECREASED GLUCOSE; Start 11/30/18 at 07:00 Dextrose (D50w Syringe) 25 ml Q15M PRN IV DECREASED GLUCOSE; Start 11/30/18 at 07:00 Dextrose (D50w Syringe) 50 ml Q15M PRN IV DECREASED GLUCOSE; Start 11/30/18 at 07:00 Glucagon (Glucagen) 1 mg Q15M PRN IM DECREASED GLUCOSE; Start 11/30/18 at 07:00 Glucose (Glutose) 15 gm Q15M PRN BUCCAL DECREASED GLUCOSE; Start 11/30/18 at 0 7:00 Insulin Glargine (Lantus) 26 units QAM SC Last administered on 11/30/18at 08:52; Admin Dose 26 UNITS; Start 11/30/18 at 09:00 ERIC LAMAS MD Nov 30, 2018 12:27
--- NOTE | 2018-11-30 13:04 | OPR ---
DATE OF OPERATION: 11/30/2018 PREOPERATIVE DIAGNOSIS: 1. End-stage renal disease. 2. Thrombosed,right upper extremity arteriovenous graft. POSTOPERATIVE DIAGNOSIS: 1. End-stage renal disease. 2. Thrombosed right upper extremity arteriovenous graft. PROCEDURE: 1. Right upper extremity fistulogram. 2. Percutaneous mechanical thrombectomy. 3. Venoplasty. SURGEON: Rupali Pruett MD ESTIMATED BLOOD LOSS: Minimal. ANESTHESIA: Moderate sedation. SPECIMENS: None. COMPLICATIONS: None. PREOPERATIVE INDICATIONS: This is an 83-year-old female with end-stage renal disease on dialysis via a right upper extremity AV graft that was created at an outside facility. She was admitted for AV graft thrombosis and per request of the machine sweeper brush maker she now presents for a fistulogram with possible intervention and possible Perm-A-Cath placement. The indications, risks and benefits of the procedure were discussed with the patient's family at length, who understood and agreed to proceed. DESCRIPTION OF PROCEDURE: The patient was properly identified, brought to the angiography suite, placed in supine position. Patient's right arm was prepped and draped in usual sterile fashion. Ultrasound was used to evaluate the AV graft, which was noted to be completely occluded. Local anesthesia was injected near the arterial limb of the graft. Ultrasound was used to guide micropuncture access and a micropuncture wire was advanced under fluoroscopy. A micropuncture sheath was placed. An 0.035 wire was advanced and a 6-Citizen [place] short sheath was placed. The floppy Glidewire and a Kumpe catheter were used to traverse the occluded graft into the central venous system. Angiography did confirm patent central veins. A 7 x 60 balloon was then used to venoplasty of the entire AV graft, especially at the venous anastomosis which was noted to have a severe stenosis. The balloon was also used for thrombus maceration and advancement. Of note, 3000 units of intravenous heparin was administered prior to intervention with the balloon. Once this was cleared, the outflow was restored. Next, retrograde access was obtained near the mid AV graft. After local anesthesia was injected, the micropuncture needle was used to access the graft under ultrasound guidance. An 0.035 Guidewire was advanced and a 6-Citizen [place] short sheath was placed. Using the Kumpe catheter and wire the occluded inflow was traversed and the catheter was placed into the brachial artery. This was confirmed on angiography. A 5-Citizen [place] over the wire Anahy balloon was then advanced and used for percutaneous thrombectomy of the entire inflow limb. There was noted to be a severe stenosis likely at the AV anastomosis. Therefore, a 6 x 60 balloon was advanced and used for angioplasty of the area. This restored the inflow and there was good pulsatility throughout the inflow limb. There was residual thrombus around the sheath of the retrograde access. Therefore, the 7 x 60 balloon was readvanced through the antegrade sheath and used for venoplasty and thrombus advancement once again into the central system. Afterwards, there was hindu of patency throughout the entire graft. There was still pulsatile flow throughout, but there was no significant stenosis in the remaining areas. This is probably likely due to the fact the patient that the patient has sluggish venous return into the heart. She likely has significant CHF. The procedure was terminated here and both sheaths were removed. Then 4-0 Monocryl pursestring sutures were used to close the access sites. Manual compression was applied for additional hemostasis. Dry dressings were then placed. The patient tolerated the procedure very well without any immediate complications. She was transferred to recovery in good condition. Dictated By: RUPALI ZAMBRANO/MERON Conf#: [id number] DID#: [id number] CC: ANNAMARIE MORENO MD; CATARINO AGUIRRE MD;*Sam* MTDJer
[2018-11-30] MEDS: RIVAROXABAN 15 MG TABLET PO SCH (17:46)
[2018-11-30] MEDS ORDERED: LIDOCAINE 1% (MPF) 5 ML VIAL SC PRN (21:00)
[2018-11-30] MEDS: ATORVASTATIN 10 MG TAB PO SCH (22:23)
[2018-11-30] MEDS: ACETAMINOPHEN 325 MG TAB PO PRN (23:39)
[2018-12-01] VITALS (34 sets, daily range): BP systolic 101–177; BP diastolic 54–79; PULSE 58–70; RESP 11–20
[2018-12-01] MEDS: PANTOPRAZOLE (EC) 40 MG TAB PO SCH (06:14)
[2018-12-01] MEDS: FUROSEMIDE 20 MG TAB PO SCH ×2 (06:15→18:54)
--- NOTE | 2018-12-01 08:45 | CONS ---
Assessment/Plan Assessment/Plan Problems: (1) End-stage renal disease needing dialysis Status: Acute Comment: for dialysis today once catheter in place by Dr Pruett (2) Clotted dialysis shunt Status: Acute Comment: re thrombosed after procedure yesterday.. to get catheter today for dialysis to occur Qualifiers: Encounter type: initial encounter Qualified Codes: T82.868A - Thrombosis due to vascular prosthetic devices, implants and grafts, initial encounter (3) IDDM (insulin dependent diabetes mellitus) Comment: stable and controlled (4) HTN (hypertension) Comment: under control Consultation Date/Type/Reason Admit Date/Time Nov 29, 2018 at 20:47 Type of Consult Nephrology Date/Time of Note DATE: 12/01/18 TIME: 08:36 Hx of Present Illness RUE AVG re thromboses last jean claude.. so no dialysis done... to get tunnellled catheter his am for dialysis to occur Exam/Review of Systems Vital Signs Vitals Vital Signs Date Temp Pulse Resp B/P (MAP) Pulse Ox O2 O2 Flow FiO2 Time Delivery Rate 12/01/18 97.6 70 16 110/54 98 07:12 (72) 11/30/18 Room Air 15:33 Intake and Output 11/30/18 11/30/18 12/01/18 1515:00 23:00 07:00 IntakeIntake Total 720 ml BalanceBalance 720 ml Exam Constitutional: alert, oriented Psych: no complaints Neck: supple Respiratory: clear to auscultation Cardiovascular: regular rate and rhythm Gastrointestinal: soft Extremities: other (cotted RUE AVG) Labs Result Diagram: 12/01/18 0525 12/01/18 0525 Results 24hrs Laboratory Tests Test 12/01/18 05:25 12/01/18 07:50 White Blood Count 6.5 Red Blood Count 3.72 L Hemoglobin 11.7 L Hematocrit 36.8 L Mean Corpuscular Volume 98.9 Mean Corpuscular Hemoglobin 31.5 Mean Corpuscular Hemoglobin Concent 31.8 L Red Cell Distribution Width 15.4 H Platelet Count 160 Mean Platelet Volume 10.5 H Immature Granulocytes % 0.500 H Neutrophils % 56.0 Lymphocytes % 27.3 Monocytes % 9.4 Eosinophils % 6.2 Basophils % 0.6 Nucleated Red Blood Cells % 0.0 Immature Granulocytes # 0.030 Neutrophils # 3.6 Lymphocytes # 1.8 Monocytes # 0.6 Eosinophils # 0.4 Basophils # 0.0 Nucleated Red Blood Cells # 0.0 Sodium Level 137 Potassium Level 5.0 Chloride Level 103 Carbon Dioxide Level 22 Anion Gap 12 Blood Urea Nitrogen 79 H Creatinine 8.40 H Est Glomerular Filtrat Rate mL/min Glucose Level 116 Calcium Level 8.0 L Phosphorus Level 5.1 H Magnesium Level 2.9 H Bedside Glucose 131 Medications Medications Current Medications IV Flush (NS 3 ml) 3 ml PER PROTOCOL IV ; Start 11/30/18 at 00:00 Ondansetron HCl (Zofran Inj) 4 mg Q6H PRN IV NAUSEA/VOMITING; Start 11/30/18 at 00:00 Acetaminophen (Tylenol Tab) 650 mg Q6H PRN PO .PAIN 1-3 OR TEMP Last administered on 11/30/18 23:39; Admin Dose 650 MG; Start 11/30/18 at 00:00 Carvedilol (Coreg) 12.5 mg Q12H PO Last administered on 11/30/18 22:23; Admin Dose 12.5 MG; Start 11/30/18 at 00:00 Furosemide (Lasix) 60 mg BID DIURETICS PO Last administered on 12/01/18 06:15; Admin Dose 60 MG; Start 11/30/18 at 00:00 Linagliptin (Tradjenta) 5 mg DAILY PO Last administered on 11/30/18 08:34; Admin Dose 5 MG; Start 11/30/18 at 09:00 Nifedipine (Procardia Xl) 60 mg DAILY PO Last administered on 11/30/18 08:35; Admin Dose 60 MG; Start 11/30/18 at 09:00 Pregabalin (Lyrica) 75 mg BID PO Last administered on 11/30/18 22:22; Admin Dose 75 MG; Start 11/30/18 at 09:00 Rivaroxaban (Xarelto) 15 mg WITH DINNER PO Last administered on 11/30/18 17:46; Admin Dose 15 MG; Start 11/30/18 at 18:00 Memantine (Namenda) 5 mg BID PO Last administered on 11/30/18 22:23; Admin Dose 5 MG; Start 11/30/18 at 09:00 Atorvastatin Calcium (Lipitor) 10 mg DAILY@21 PO Last administered on 4/13/19at 22:23; Admin Dose 10 MG; Start 11/30/18 at 21:00 Pantoprazole (Protonix Tab) 40 mg DAILY@06 PO Last administered on 12/01/18at 06:14; Admin Dose 40 MG; Start 11/30/18 at 06:00 Miscellaneous Information 1 ea NOTE XX ; Start 11/30/18 at 07:00 Glucose (Glutose) 15 gm Q15M PRN PO DECREASED GLUCOSE; Start 11/30/18 at 07:00 Glucose (Glutose) 22.5 gm Q15M PRN PO DECREASED GLUCOSE; Start 11/30/18 at 07:00 Dextrose (D50w Syringe) 25 ml Q15M PRN IV DECREASED GLUCOSE; Start 11/30/18 at 07:00 Dextrose (D50w Syringe) 50 ml Q15M PRN IV DECREASED GLUCOSE; Start 11/30/18 at 07:00 Glucagon (Glucagen) 1 mg Q15M PRN IM DECREASED GLUCOSE; Start 11/30/18 at 07:00 Glucose (Glutose) 15 gm Q15M PRN BUCCAL DECREASED GLUCOSE; Start 11/30/18 at 07:00 Insulin Glargine (Lantus) 26 units QAM SC Last administered on 11/30/18at 08:52; Admin Dose 26 UNITS; Start 11/30/18 at 09:00 ERIC LAMAS MD Dec 01, 2018 08:45
[2018-12-01] MEDS: PREGABALIN 75 MG CAP PO SCH ×2 (09:00→21:00)
[2018-12-01] MEDS: INSULIN GLARGINE [LANTus] (100 UNITS/ML) SYG SC SCH (09:00)
[2018-12-01] MEDS: LINAGLIPTIN 5 MG TABLET PO SCH (09:00)
[2018-12-01] MEDS: MEMANTINE 5 MG TAB PO SCH ×2 (09:00→21:00)
[2018-12-01] MEDS: NIFEdipine (XL) 60 MG TAB PO SCH (09:00)
--- NOTE | 2018-12-01 09:32 | PN ---
Date/Time of Note Date/Time of Note DATE: 12/01/18 TIME: 09:28 Assessment/Plan VTE Prophylaxis Risk score (from Ns)>0 risk: 5 SCD applied (from Ns): No SCD contraindicated: other Pharmacological prophylaxis: rivaroxaban Lines/Catheters IV C[facility]ter [facility]from [facility] Saline Lock Urinary Cath still in place: No Assessment/Plan Hospital Course S: Patient had declotting of AV graft performed yesterday but it re-clotted afterwards so no dialysis was done. Awaiting catheter placement for later today and then planning for dialysis later today. Seen by renal team this morning. No other acute events overnight. O: VS - see below PE: GEN: No apparent distress, well-developed, lying in bed Head: Normocephalic, Atraumatic Eyes: Normal Conjunctiva. Extraocular movements intact. ENT: Normal External Ears, Nose and Mouth. Neck: Full range of motion. No meningismus. Resp: Clear to auscultation bilaterally, No wheezes, rales or rhonchi Cardio: Regular rate and rhythm. No murmurs, rubs or gallops Abd: Soft, non tender, non distended. Normal bowel sounds Ext: No lower extremity edema bilaterally. Right upper extremity graft with no palpable pulsatile thrill. Neur: No focal deficits Assessment/Plan: 83-year-old female who presents with: 1. Occluded right upper extremity AVF-again, Ultrasound in the ER shows Occluded right radial-cephalic AVF and occluded right brachial-axillary graft. This was as mentioned above declotted yesterday but then it re-clotted. -Planning for catheter placement for dialysis access, then planning for dialysis later today afterwards, follow-up renal and vascular surgeon further recommendations -Follow-up PT and OT consults 2. ESRD on HD: M/W/F schedule patient is on as an outpatient -Again, monitor for now, dialysis per renal recommendations -see #1 3. Hypertension: BP currently in acceptable range -Monitor, continue current antihypertensive medications 4. Dyslipidemia: Continue home meds 5. Diabetes: Sugar stable, A1c equals 7.6 -Monitor, continue insulin 6. Pacemaker: No acute issue Result Diagram: 12/01/18 0525 12/01/18 0525 Results 24hrs Laboratory Tests Test 12/01/18 05:25 12/01/18 07:50 White Blood Count 6.5 Red Blood Count 3.72 L Hemoglobin 11.7 L Hematocrit 36.8 L Mean Corpuscular Volume 98.9 Mean Corpuscular Hemoglobin 31.5 Mean Corpuscular Hemoglobin Concent 31.8 L Red Cell Distribution Width 15.4 H Platelet Count 160 Mean Platelet Volume 10.5 H Immature Granulocytes % 0.500 H Neutrophils % 56.0 Lymphocytes % 27.3 Monocytes % 9.4 Eosinophils % 6.2 Basophils % 0.6 Nucleated Red Blood Cells % 0.0 Immature Granulocytes # 0.030 Neutrophils # 3.6 Lymphocytes # 1.8 Monocytes # 0.6 Eosinophils # 0.4 Basophils # 0.0 Nucleated Red Blood Cells # 0.0 Sodium Level 137 Potassium Level 5.0 Chloride Level 103 Carbon Dioxide Level 22 Anion Gap 12 Blood Urea Nitrogen 79 H Creatinine 8.40 H Est Glomerular Filtrat Rate mL/min Glucose Level 116 Calcium Level 8.0 L Phosphorus Level 5.1 H Magnesium Level 2.9 H Bedside Glucose 131 Exam/Review of Systems Exam Vitals Vital Signs Date Temp Pulse Resp B/P (MAP) Pulse Ox O2 O2 Flow FiO2 Time Delivery Rate 12/01/18 61 08:00 12/01/18 97.6 16 110/54 98 07:12 (72) 11/30/18 Room Air 15:33 Intake and Output 11/30/18 11/30/18 12/01/18 1515:00 23:00 07:00 IntakeIntake Total 720 ml BalanceBalance 720 ml Results Results 24hrs Laboratory Tests Test 12/01/18 05:25 12/01/18 07:50 White Blood Count 6.5 Red Blood Count 3.72 L Hemoglobin 11.7 L Hematocrit 36.8 L Mean Corpuscular Volume 98.9 Mean Corpuscular Hemoglobin 31.5 Mean Corpuscular Hemoglobin Concent 31.8 L Red Cell Distribution Width 15.4 H Platelet Count 160 Mean Platelet Volume 10.5 H Immature Granulocytes % 0.500 H Neutrophils % 56.0 Lymphocytes % 27.3 Monocytes % 9.4 Eosinophils % 6.2 Basophils % 0.6 Nucleated Red Blood Cells % 0.0 Immature Granulocytes # 0.030 Neutrophils # 3.6 Lymphocytes # 1.8 Monocytes # 0.6 Eosinophils # 0.4 Basophils # 0.0 Nucleated Red Blood Cells # 0.0 Sodium Level 137 Potassium Level 5.0 Chloride Level 103 Carbon Dioxide Level 22 Anion Gap 12 Blood Urea Nitrogen 79 H Creatinine 8.40 H Est Glomerular Filtrat Rate mL/min Glucose Level 116 Calcium Level 8.0 L Phosphorus Level 5.1 H Magnesium Level 2.9 H Bedside Glucose 131 Medications Medication Current Medications IV Flush (NS 3 ml) 3 ml PER PROTOCOL IV ; Start 11/30/18 at 00:00 Ondansetron HCl (Zofran Inj) 4 mg Q6H PRN IV NAUSEA/VOMITING; Start 11/30/18 at 00:00 Acetaminophen (Tylenol Tab) 650 mg Q6H PRN PO .PAIN 1-3 OR TEMP Last administered on 11/30/18 23:39; Admin Dose 650 MG; Start 11/30/18 at 00:00 Carvedilol (Coreg) 12.5 mg Q12H PO Last administered on 11/30/18 22:23; Admin Dose 12.5 MG; Start 11/30/18 at 00:00 Furosemide (Lasix) 60 mg BID DIURETICS PO Last administered on 12/01/18 06:15; Admin Dose 60 MG; Start 11/30/18 at 00:00 Linagliptin (Tradjenta) 5 mg DAILY PO Last administered on 11/30/18 08:34; Ad min Dose 5 MG; Start 11/30/18 at 09:00 Nifedipine (Procardia Xl) 60 mg DAILY PO Last administered on 11/30/18 08:35; Admin Dose 60 MG; Start 11/30/18 at 09:00 Pregabalin (Lyrica) 75 mg BID PO Last administered on 11/30/18 22:22; Admin Dose 75 MG; Start 11/30/18 at 09:00 Rivaroxaban (Xarelto) 15 mg WITH DINNER PO Last administered on 11/30/18 17:46; Admin Dose 15 MG; Start 11/30/18 at 18:00 Memantine (Namenda) 5 mg BID PO Last administered on 11/30/18 22:23; Admin Dose 5 MG; Start 11/30/18 at 09:00 Atorvastatin Calcium (Lipitor) 10 mg DAILY@21 PO Last administered on 11/30/18 22:23; Admin Dose 10 MG; Start 11/30/18 at 21:00 Pantoprazole (Protonix Tab) 40 mg DAILY@06 PO Last administered on 4/14/19at 06:14; Admin Dose 40 MG; Start 11/30/18 at 06:00 Miscellaneous Information 1 ea NOTE XX ; Start 11/30/18 at 07:00 Glucose (Glutose) 15 gm Q15M PRN PO DECREASED GLUCOSE; Start 11/30/18 at 07:00 Glucose (Glutose) 22.5 gm Q15M PRN PO DECREASED GLUCOSE; Start 11/30/18 at 07:00 Dextrose (D50w Syringe) 25 ml Q15M PRN IV DECREASED GLUCOSE; Start 11/30/18 at 07:00 Dextrose (D50w Syringe) 50 ml Q15M PRN IV DECREASED GLUCOSE; Start 11/30/18 at 07:00 Glucagon (Glucagen) 1 mg Q15M PRN IM DECREASED GLUCOSE; Start 11/30/18 at 07:00 Glucose (Glutose) 15 gm Q15M PRN BUCCAL DECREASED GLUCOSE; Start 11/30/18 at 07:00 Insulin Glargine (Lantus) 26 units QAM SC Last administered on 11/30/18at 08:52; Admin Dose 26 UNITS; Start 11/30/18 at 09:00 DEEJAY MCGREGOR Dec 01, 2018 09:32
--- NOTE | 2018-12-01 14:18 | PREAC ---
Date/Time of Note Date/Time of Note DATE: 12/01/18 TIME: 14:17 Anesthesia Eval and Record Evaluation Time Pre-Procedure Interview DATE: 12/01/18 TIME: 14:17 Age 83 Sex female NPO: 8 hrs Preoperative diagnosis ESRD Planned procedure Perm A cath placement Past Medical History Past Medical History: Includes Cardio: HTN, PPM/AICD Endo: Diabetes Renal: ESRD on dialysis Surgery & Anesthesia Issues No known issue Meds Anticoagulation: No Beta Kaden within 24 hr: No Reason Beta Kaden not given: Pt. not on B-Kaden Reported Medications Furosemide* (Furosemide*) 20 Mg Tablet, 60 MG PO BID for 30 Days, #180 11/29/18 Linagliptin (TRADJENTA) 5 Mg Tablet, 5 MG PO DAILY 11/29/18 Nifedipine (Afeditab CR) 60 Mg Tablet.sa, 60 MG PO DAILY for 90 Days, #90 11/29/18 Carvedilol* (Coreg*) 12.5 Mg Tablet, 12.5 MG PO Q12H 11/29/18 Insulin Degludec (Tresiba Flextouch U-100) 100 Unit/1 Ml Insuln.pen, 26 UNIT SQ QAM 11/29/18 Insulin Aspart* (Novolog Insulin Pen*) 100 Unit/Ml Soln, 8 UNIT SC WITH DINNER, EA 11/29/18 Ferric Citrate (Auryxia) 210 Mg Tablet, 420 MG PO TID TAKE 2TABLETS BY MOUTH THREE TIMES A DAY 11/29/18 Simvastatin (Simvastatin) 20 Mg Tablet, 20 MG PO QAM for 90 Days, #90 11/29/18 Memantine* (Namenda* XR) 14 Mg Cap.spr.24, 14 MG PO DAILY 11/29/18 Lactulose* (Cephulac*) 20 Gm/30 Ml Soln, 30 ML PO DAILY for 30 Days 11/29/18 Rivaroxaban* (Xarelto*) 15 Mg Tablet, 15 MG PO DAILY for 30 Days, #30 11/29/18 Pregabalin* (Lyrica*) 75 Mg Capsule, 75 MG PO BID for 30 Days, #60 11/29/18 Esomeprazole Magnesium (Esomeprazole Magnesium) 40 Mg Capsule.dr, 40 MG PO DAILY for 60 Days, #30 11/29/18 Discontinued Reported Medications Carvedilol* (Carvedilol*) 12.5 Mg Tablet, 12.5 MG PO BID, #60 TAB 11/29/18 Current Medications IV Flush (NS 3 ml) 3 ml PER PROTOCOL IV ; Start 11/30/18 at 00:00 Ondansetron HCl (Zofran Inj) 4 mg Q6H PRN IV NAUSEA/VOMITING; Start 11/30/18 at 00:00 Acetaminophen (Tylenol Tab) 650 mg Q6H PRN PO .PAIN 1-3 OR TEMP Last administered on 11/30/18 23:39; Admin Dose 650 MG; Start 11/30/18 at 00:00 Carvedilol (Coreg) 12.5 mg Q12H PO Last administered on 11/30/18 22:23; Admin Dose 12.5 MG; Start 11/30/18 at 00:00 Furosemide (Lasix) 60 mg BID DIURETICS PO Last administered on 12/01/18 06:15; Admin Dose 60 MG; Start 11/30/18 at 00:00 Linagliptin (Tradjenta) 5 mg DAILY PO Last administered on 11/30/18 08:34; Admin Dose 5 MG; Start 11/30/18 at 09:00 Nifedipine (Procardia Xl) 60 mg DAILY PO Last administered on 11/30/18 08:35; Admin Dose 60 MG; Start 11/30/18 at 09:00 Pregabalin (Lyrica) 75 mg BID PO Last administered on 11/30/18 22:22; Admin Dose 75 MG; Start 11/30/18 at 09:00 Rivaroxaban (Xarelto) 15 mg WITH DINNER PO Last administered on 11/30/18 17:46; Admin Dose 15 MG; Start 11/30/18 at 18:00 Memantine (Namenda) 5 mg BID PO Last administered on 11/30/18 22:23; Admin Dose 5 MG; Start 11/30/18 at 09:00 Atorvastatin Calcium (Lipitor) 10 mg DAILY@21 PO Last administered on 11/30/18 22:23; Admin Dose 10 MG; Start 11/30/18 at 21:00 Pantoprazole (Protonix Tab) 40 mg DAILY@06 PO Last administered on 12/01/18 06:14; Admin Dose 40 MG; Start 11/30/18 at 06:00 Miscellaneous Information 1 ea NOTE XX ; Start 11/30/18 at 07:00 Glucose (Glutose) 15 gm Q15M PRN PO DECREASED GLUCOSE; Start 11/30/18 at 07:00 Glucose (Glutose) 22.5 gm Q15M PRN PO DECREASED GLUCOSE; Start 11/30/18 at 07:00 Dextrose (D50w Syringe) 25 ml Q15M PRN IV DECREASED GLUCOSE; Start 11/30/18 at 07:00 Dextrose (D50w Syringe) 50 ml Q15M PRN IV DECREASED GLUCOSE; Start 11/30/18 at 07:00 Glucagon (Glucagen) 1 mg Q15M PRN IM DECREASED GLUCOSE; Start 11/30/18 at 07:00 Glucose (Glutose) 15 gm Q15M PRN BUCCAL DECREASED GLUCOSE; Start 11/30/18 at 07:00 Insulin Glargine (Lantus) 26 units QAM SC Last administered on 11/30/18at 08:52; Admin Dose 26 UNITS; Start 11/30/18 at 09:00 Meds reviewed: Yes Allergies Coded Allergies: No Known Allergy (Unverified , 11/29/18) Allergies Reviewed: Yes Labs/Studies Labs Reviewed: Reviewed by anesthesiologist Result Diagram: 12/01/18 0525 12/01/18 0525 Laboratory Tests 12/01/18 05:25 test: N/A Pre-procedure Exam Last vitals Vital Signs Date Temp Pulse Resp B/P (MAP) Pulse Ox O2 O2 Flow FiO2 Time Delivery Rate 12/01/18 61 12:00 12/01/18 98.8 16 128/58 97 11:13 (81) 11/30/18 Room Air 15:33 Airway: Adequate mouth opening Mallampati: Mallampati I Teeth: Abnormal (denture) Lung: Normal Heart: Normal ASA Physical Status ASA physical status: 3 Emergency: None Planned Anesthetic General/MAC: MAC Planned Pain Management Parenteral pain med Pre-operative Attestations Prior to commencing anesthesia and surgery, the patient was re-evaluated, there was verification of: *The patient's identity *The results of appropriate recent lab work and preoperative vital signs *The above evaluation not changing prior to induction *Anesthetic plan, risk benefits, alternative and complications discussed with patient/family; questions answered; patient/family understands, accepts and wishes to proceed. YAA LADD MD Dec 01, 2018 14:18
[2018-12-01] MEDS ORDERED: LIDOCAINE 1% (MPF) 30 ML INJ ONE (14:19)
[2018-12-01] MEDS ORDERED: HEPARIN 1000 UNITS/ML 10 ML INJ ONE ×2 (14:20→15:04)
[2018-12-01] MEDS ORDERED: FENTAnyl 50 MCG/ML VIAL IV PRN ×3 (14:30)
[2018-12-01] MEDS ORDERED: ONDANSETRON 4 MG INJ IV PRN (14:30)
[2018-12-01] MEDS ORDERED: HYDROmorphONE 1 MG/5 ML IV SYRINGE IV PRN ×3 (14:30)
[2018-12-01] MEDS ORDERED: PROPOFOL 20 ML ONE (14:53)
[2018-12-01] MEDS ORDERED: IOHEXOL 300MG/ML 30 ML BTL ONE (15:24)
--- NOTE | 2018-12-01 15:52 | SIPON ---
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
--- NOTE | 2018-12-01 16:02 | PN ---
Date/Time of Note Date/Time of Note DATE: 12/01/18 TIME: 15:55 Assessment/Plan Lines/Catheters IV Catheter Type (from Nrsg): Saline Lock Romero in Place (from Nrsg): No Assessment/Plan Assessment/Plan ESRD, recurrent thrombosis of RUE AVG despite perc thrombectomy and venoplasty yesterday - pt needs tunneled dialysis catheter Plan: -Appreciate medical management -Plan for tunneled dialysis catheter placement in RIJ if still patent (pt has h/o RIJ PC x2 and L chest pacer) otherwise, explained to pt and family need for possible femoral vein PC - they understood and agreed to proceed -D/w RN Subjective 24 Hr Interval Summary RUE AVG reoccluded last evening after catholic of patency earlier in day, suggesting significant issues w/ AVG itself - pt did not receive HD before it reoccluded; no issues currently Exam/Review of Systems Vital Signs Vitals Vital Signs Date Temp Pulse Resp B/P (MAP) Pulse Ox O2 O2 Flow FiO2 Time Delivery Rate 12/01/18 61 12:00 12/01/18 98.8 16 128/58 97 11:13 (81) 11/30/18 Room Air 15:33 Intake and Output 11/30/18 11/30/18 12/01/18 1515:00 23:00 07:00 IntakeIntake Total 720 ml BalanceBalance 720 ml Exam Free Text/Dictation Gen: Awake, alert, NAD Neck: supple Extr: RUE AVG w/ cannulation attempt sites noted, AVG is completely thrombosed again, no edema, no erythema, no tenderness Results Result Diagram: 12/01/18 0525 12/01/18 0525 RUPALI BRADSHAW MD Dec 01, 2018 16:02
--- NOTE | 2018-12-01 17:27 | OPR ---
DATE OF OPERATION: 12/01/2018 PREOPERATIVE DIAGNOSIS: This is an 83-year-old female with end-stage renal disease on dialysis, who had a thrombosed right upper extremity AV graft that was intervened upon yesterday with percutaneous thrombectomy and venoplasty and christianity of patency. However, later in the evening when dialysis was attempted, it was noted that the graft had re-occluded. This suggests that there is some fundame ntal issue with the graft itself and likely not salvageable given the fact that it would be occluded so quickly after christianity of patency. Therefore, the patient now presents for a tunneled dialysis catheter. Extensive discussion was had with the patient and the family, given that the patient has a left-sided pacemaker along with history of Perm-A-Cath x2 on the right side, therefore, diminishing the chances of the right IJ vein being patent. They understand that the right side is not amenable to placement of the catheter. She would need a femoral vein tunneled catheter. They understood the indications, risks and benefits of the procedure and agreed to proceed. DESCRIPTION OF PROCEDURE: The patient was properly identified, brought to the operating room and ming leticia in a supine position. She was induced with MAC anesthesia. Ultrasound was used to evaluate the right IJ vein, which was noted to be patent; however, somewhat diminished in caliber more proximally suggesting that there was some scarring and the potential for some stenosis more proximally. The ming n was to give this a try for the access. Therefore, the right neck and chest were prepped and draped in usual sterile fashion. Ultrasound was used to localize the vein once again and local anesthesia was injected into the skin and subcutaneous tissues overlying the vein. A standard access needle was initially used to access the vein under direct ultrasound guidance and a J-wire was advanced; jillian r, it appeared that it encountered either a significant stenosis or lesion further centrally. Theref ore, attempt of a floppy Glidewire was also made, but was unsuccessful to advance further. Given thi s, a micropuncture introducer set was obtained and used to access the IJ vein once again under direct ultrasound guidance. The micropuncture wire was advanced and this actually advanced a bit further e asily under fluoroscopy and enough with a little bit of space such that the micropuncture sheath was advanced. Once the sheath was in, the wire was advanced further in easily. A central vein venogram was actually performed and demonstrated that the SVC and innominate veins were patent. There may hav e been some stenotic areas much more distally in the access site, but the central system was widely p atent. The patient definitely has severe refluxing of the central system suggesting significant CHF. The J-wire was advanced through the micropuncture sheath and eventually placed into the IVC. Sequen tial dilation of the axis and the vein was then performed. The peel-away sheath was placed. An appr opriate place was chosen for the catheter exit site on the chest and local anesthesia was injected in the planned tunnel tract. An 11-blade scalpel was used to create the skin mahnaz at the exit site and using a rigid trocar 19 cm from cuff to tip, dialysis catheter was then tunneled from the chest to t he neck site. The wire and inner dilator of the peel-away sheath was removed. The catheter was intr oduced into the sheath. Once in good position, the sheath was removed. Final position of the tip wa s in the distal SVC/right atrial junction. Both ports of the catheter christy back and flushed easily w ith heparinized saline. Both ports were then locked with concentrated heparin at 1000 units per mL a t the appropriate volumes. Caps were then placed. A Monocryl suture was used to close the neck site . The catheter was affixed to the chest wall using 3-0 nylon sutures. A Biopatch and dry dressings were then placed. The patient was then awoken from MAC anesthesia without any difficulty. She was t ransferred in good condition. There were no immediate complications. Dictated By: RUPALI ZAMBRANO/MERON Conf#: [id number] DID#: [id number]
[2018-12-01] MEDS: RIVAROXABAN 15 MG TABLET PO SCH (18:54)
[2018-12-01] MEDS: ATORVASTATIN 10 MG TAB PO SCH (21:00)
[2018-12-01] MEDS ORDERED: HEPARIN 1000 UNITS/ML 10 ML INJ CATHETER ONE (21:30)
[2018-12-02] VITALS (12 sets, daily range): BP systolic 101–160; BP diastolic 56–70; PULSE 59–66; RESP 16–18
[2018-12-02] MEDS: MEMANTINE 5 MG TAB PO SCH ×2 (01:24→08:33)
[2018-12-02] MEDS: PREGABALIN 75 MG CAP PO SCH ×2 (01:24→08:37)
[2018-12-02] MEDS: ATORVASTATIN 10 MG TAB PO SCH (01:25)
[2018-12-02] MEDS: PANTOPRAZOLE (EC) 40 MG TAB PO SCH (06:09)
[2018-12-02] MEDS: FUROSEMIDE 20 MG TAB PO SCH ×2 (06:16→17:22)
--- NOTE | 2018-12-02 07:44 | CONS ---
Assessment/Plan Assessment/Plan Problems: (1) End-stage renal disease needing dialysis Status: Acute Comment: s/p HD late last night.. can wait till Wed for next HD if is d/c today (2) Clotted dialysis shunt Status: Acute Comment: s/p Rt chest Permacath... if carlos the pain, is OK to D/C from renal perspective.. again, if d/c, next HD can be Wed, not today Qualifiers: Encounter type: initial encounter Qualified Codes: T82.868A - Thrombosis due to vascular prosthetic devices, implants and grafts, initial encounter (3) HTN (hypertension) Comment: controlled Consultation Date/Type/Reason Admit Date/Time Nov 29, 2018 at 20:47 Type of Consult Nephrology Date/Time of Note DATE: 12/02/18 TIME: 07:41 Hx of Present Illness s/p Rt chest Permacath, and HD late last night/early this am Exam/Review of Systems Vital Signs Vitals Vital Signs Date Temp Pulse Resp B/P (MAP) Pulse Ox O2 O2 Flow FiO2 Time Delivery Rate 12/02/18 98.2 63 16 124/56 98 07:30 (78) 12/01/18 Room Air 21:32 Intake and Output 12/01/18 12/01/18 12/02/18 1515:00 23:00 07:00 IntakeIntake Total 150 ml 270 ml 200 ml OutputOutput Total 205 ml 2400 ml BalanceBalance 150 ml 65 ml -2200 ml Exam Constitutional: alert, oriented Psych: no complaints Eyes: nl conjunctiva ENMT: nl external ears & nose Neck: supple, non-tender, other (permacath Rt upper chest) Respiratory: clear to auscultation Cardiovascular: regular rate and rhythm Gastrointestinal: soft Musculoskeletal: nl extremities to inspection Labs Result Diagram: 12/02/18 0430 12/02/18 0430 Results 24hrs Laboratory Tests Test 12/01/18 07:50 12/01/18 12:22 12/02/18 04:30 Bedside Glucose 131 128 White Blood Count 6.1 Red Blood Count 3.97 L Hemoglobin 12.6 Hematocrit 38.9 Mean Corpuscular Volume 98.0 Mean Corpuscular Hemoglobin 31.7 Mean Corpuscular Hemoglobin Concent 32.4 Red Cell Distribution Width 15.4 H Platelet Count 149 Mean Platelet Volume 10.2 Immature Granulocytes % 1.000 H Neutrophils % 61.4 Lymphocytes % 23.4 Monocytes % 8.1 Eosinophils % 5.4 Basophils % 0.7 Nucleated Red Blood Cells % 0.0 Immature Granulocytes # 0.060 H Neutrophils # 3.7 Lymphocytes # 1.4 Monocytes # 0.5 Eosinophils # 0.3 Basophils # 0.0 Nucleated Red Blood Cells # 0.0 Sodium Level 137 Potassium Level 5.2 H Chloride Level 103 Carbon Dioxide Level 23 Anion Gap 11 Blood Urea Nitrogen 46 #H Creatinine 5.80 #H Est Glomerular Filtrat Rate mL/min Glucose Level 165 Calcium Level 8.0 L Medications Medications Current Medications IV Flush (NS 3 ml) 3 ml PER PROTOCOL IV ; Start 11/30/18 at 00:00 Ondansetron HCl (Zofran Inj) 4 mg Q6H PRN IV NAUSEA/VOMITING; Start 11/30/18 at 00:00 Acetaminophen (Tylenol Tab) 650 mg Q6H PRN PO .PAIN 1-3 OR TEMP Last administered on 11/30/18 23:39; Admin Dose 650 MG; Start 11/30/18 at 00:00 Carvedilol (Coreg) 12.5 mg Q12H PO Last administered on 12/02/18 01:26; Admin Dose 12.5 MG; Start 11/30/18 at 00:00 Furosemide (Lasix) 60 mg BID DIURETICS PO Last administered on 12/02/18 06:16; Admin Dose 60 MG; Start 11/30/18 at 00:00 Linagliptin (Tradjenta) 5 mg DAILY PO Last administered on 11/30/18 08:34; Admin Dose 5 MG; Start 11/30/18 at 09:00 Nifedipine (Procardia Xl) 60 mg DAILY PO Last administered on 11/30/18 08:35; Admin Dose 60 MG; Start 11/30/18 at 09:00 Pregabalin (Lyrica) 75 mg BID PO Last administered on 12/02/18 01:24; Admin Dose 75 MG; Start 11/30/18 at 09:00 Rivaroxaban (Xarelto) 15 mg WITH DINNER PO Last administered on 12/01/18 18:54; Admin Dose 15 MG; Start 11/30/18 at 18:00 Memantine (Namenda) 5 mg BID PO Last administered on 4/15/19at 01:24; Admin Dose 5 MG; Start 11/30/18 at 09:00 Atorvastatin Calcium (Lipitor) 10 mg DAILY@21 PO Last administered on 12/02/18at 01:25; Admin Dose 10 MG; Start 11/30/18 at 21:00 Pantoprazole (Protonix Tab) 40 mg DAILY@06 PO Last administered on 12/02/18at 06:09; Admin Dose 40 MG; Start 11/30/18 at 06:00 Miscellaneous Information 1 ea NOTE XX ; Start 11/30/18 at 07:00 Glucose (Glutose) 15 gm Q15M PRN PO DECREASED GLUCOSE; Start 11/30/18 at 07:00 Glucose (Glutose) 22.5 gm Q15M PRN PO DECREASED GLUCOSE; Start 11/30/18 at 07:00 Dextrose (D50w Syringe) 25 ml Q15M PRN IV DECREASED GLUCOSE; Start 11/30/18 at 07:00 Dextrose (D50w Syringe) 50 ml Q15M PRN IV DECREASED GLUCOSE; Start 11/30/18 at 07:00 Glucagon (Glucagen) 1 mg Q15M PRN IM DECREASED GLUCOSE; Start 11/30/18 at 07:00 Glucose (Glutose) 15 gm Q15M PRN BUCCAL DECREASED GLUCOSE; Start 11/30/18 at 07:00 Insulin Glargine (Lantus) 26 units QAM SC Last administered on 11/30/18at 08:52; Admin Dose 26 UNITS; Start 11/30/18 at 09:00 ERIC LAMAS MD Dec 02, 2018 07:44
[2018-12-02] MEDS: LINAGLIPTIN 5 MG TABLET PO SCH (08:33)
[2018-12-02] MEDS: NIFEdipine (XL) 60 MG TAB PO SCH (08:33)
[2018-12-02] MEDS: INSULIN GLARGINE [LANTus] (100 UNITS/ML) SYG SC SCH (08:36)
--- NOTE | 2018-12-02 09:10 | PAC ---
Date/Time of Note Date/Time of Note DATE: 12/02/18 TIME: 09:10 Post-Anesthesia Notes Post-Anesthesia Note Last documented vital signs Vital Signs Date Temp Pulse Resp B/P (MAP) Pulse Ox O2 O2 Flow FiO2 Time Delivery Rate 12/02/18 61 08:01 12/02/18 98.2 71 16 124/56 98 07:30 (78) 12/01/18 Room Air 21:32 Activity: WNL Respiratory function: WNL Cardiovascular function: WNL Mental status: Baseline Pain reasonably controlled: Yes Hydration appropriate: Yes Nausea/Vomiting absent: No YAA LADD MD Dec 02, 2018 09:10
[2018-12-02] MEDS: ACETAMINOPHEN 325 MG TAB PO PRN (09:42)
[2018-12-02] MEDS ORDERED: morphine 2 MG INJ IV STA (15:25)
[2018-12-02] MEDS ORDERED: POLY17PO6 PO (15:29)
[2018-12-02] MEDS ORDERED: HYDR-4011 PO (15:29)
[2018-12-02] MEDS ORDERED: morphine 2 MG INJ IV PRN (15:30)
[2018-12-02] MEDS ORDERED: SEVE800T7 PO (15:31)
--- NOTE | 2018-12-02 15:33 | PDOCDIS ---
Discharge Instructions CONDITION [id number] Patient Condition: [id number] Stable HOME CARE INSTRUCTIONS: [id number] Special Diet: [id number] carbohydrate controlled, renal diet FOLLOW UP/APPOINTMENTS Follow-up Plan resume routine HD on sunday12/04/18 JOSE DAVID BONILLA Dec 02, 2018 15:33
[2018-12-02] MEDS: RIVAROXABAN 15 MG TABLET PO SCH (17:22)
--- NOTE | 2018-12-02 18:31 | DS ---
DATE OF ADMISSION: 11/29/2018 DATE OF DISCHARGE: 12/02/2018 PRESENTING COMPLAINT: AV fistula to right arm not working. FINAL DIAGNOSES: 1. 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 Occlusion was verified by ultrasound. It was declotted percutaneously 12/01/2018, but then clotted again, and the patient had to have placement of temporary dialysis access catheter in the right IJ for now, and the patient will continue with this for hemodialysis until she may require new fistula placed, but she will will follow up with Dr. Pruett as outpatient. 2. Endstage renal disease, on hemodialysis Sunday, Sunday and Sunday. 3. Hypertension with good control. 4. Dyslipidemia. 5. Diabetes type 2, A1c 7.6. 6. History of sick sinus, status post pacemaker. CONSULTS ON THE CASE: Dr. Orlando Mesa for nephrology, and Dr. Placido Pruett for vascular surgery. INTERVENTIONS: For full detail of interventions, please refer to the patient's chart, but she did have first an ultrasound of the right upper extremity that showed occluded right radiocephalic AVF and occluded right brachial axillary graft. After this, she went into the operating theater for right upper extremity fistulogram, percutaneous thrombectomy and venoplasty. This was done 11/30/2018. However, 12/01/2018 the patient had to go back to the operating room because she was also noted that the graft had been occluded during hemodialysis. Vascular surgery did suggest that there is some fundamental issue with the graft itself, and is likely not salvageable, given the fact that site it occluded so quickly after its original patency, and so the patient underwent tunneled catheter to the right internal jugular vein. It was planned that the patient will get a femoral vein tunneled, but when they got into the operating room, the IJ was found to be patent and she got a tunneled catheter placed there. This was done 12/01/2018. As of today, the patient has been cleared for discharge by nephrology as well as vascular surgery. The patient is still having some mild postoperative pain at the surgery site, but this is relieved by pain medication. She is scheduled for repeat hemodialysis on Sunday as per her routine and per nephrology, she is okay to be discharged for outpatient hemodialysis. Her daughter, however, is a little concerned about the care of the access site as outpatient, we are going to be discharging her with home health for nursing assessment and to help with wound care and dressing changes as well as pain management, if necessary, and the family is more comfortable with that. DISPOSITION: To home, with home health for nursing assessment. ACTIVITIES: As tolerated. RECOMMENDED DIET: Diabetic/renal diet. DISCHARGE CONDITION: Stable. DISCHARGE MEDICATIONS: For a complete list of discharge medications, please review the patient's chart. Time spent on discharge coordination as well as speaking with consultants and chart evaluation has been about 60 minutes. Dictated By: JOSE DAVID BONILLA MD BA/NTS Conf#: [id number] DID#: [id number] CC: CATARINO AGUIRRE MD;*EndCC* MTDD
== END 2018-12-02 18:40 | disposition home health service (06) ==
LOC: E/R 15:45 → 6WM 20:47 → INTOOBSV 20:47
PROVIDERS: ADMIT Internal Medicine; ATTEND Hospitalist
DX: T82.868A Thrombosis due to vascular prosthetic devices, implants and grafts, initial encounter (principal); I13.2 Hypertensive heart and chronic kidney disease with heart failure and with stage 5 chronic kidney disease, or end stage renal disease; E11.22 Type 2 diabetes mellitus with diabetic chronic kidney disease; N18.6 End stage renal disease; I50.9 Heart failure, unspecified; Z99.2 Dependence on renal dialysis; Z79.4 Long term (current) use of insulin; E78.5 Hyperlipidemia, unspecified; Z83.3 Family history of diabetes mellitus; Y83.2 Surgical operation with anastomosis, bypass or graft as the cause of abnormal reaction of the patient, or of later complication, without mention of misadventure at the time of the procedure; Z95.0 Presence of cardiac pacemaker; Z79.01 Long term (current) use of anticoagulants
CPT/HCPCS: 36561; 36905; 71045; 80048; 80053; 80061; 82962; 83036; 83735; 84100; 85025; 85610; 86706; 87340; 90935; 93005; 93926; 97162; 97165; 99285; C1725; C1752; C1757; C1887; C1894; G0378; J1644; J1815; J2270; J3010; Q9967; 75820; 76937; J2997